=== PATIENT | female | born 1965 | race African-American/Black ===

== ENCOUNTER 2016-11-16 17:18 | Emergency (ER) | payer OTHER ==
--- NOTE | ~2016-11-16 | CR21 ---
[facility] A Service of [facility] RADIOLOGY TEXT RESULTS PATIENT: NATHALY DURHAM LOCATION: [facility] : 69 UNIT #: [id number] AGE: [address]: Rocío Murillo SEX: F ORDER DR: [id number] [facility] [address] [place], [place] [address] [id number] E MR#: [id number] Acc #: [id number] NAME: NATHALY DURHAM. : 1965 SEX: F STUDY DATE/TIME: 11/16/2016 17:45 UNIT: [facility] ROOM: STUDY DESCRIPTION: CR Ankle Min 3 Views Rt Attending Physician: Rocío Murillo Pa-C Ordering Physician: Rocío Murillo Pa-C Primary Care Physician: Primary Care Physician No MEDICAL IMAGING REPORT This report is preliminary unless electronic signature is present EXAM 4 views of the right ankle INDICATION Pain in the right foot and ankle, hurts to put weight on it. This occurred after the patient stepped in a hole today. FINDINGS No acute fracture or subluxation of the right ankle is identified. There is probably some mild soft tissue swelling overlying the lateral malleolus. Really minimal degenerative change is seen. No aggressive osseous abnormalities are identified. IMPRESSION No acute fracture or subluxation identified although there may be some mild soft tissue swelling about the lateral malleolus. Dictated by... Rebecca Tyler M.D. THIS IS AN ELECTRONICALLY VERIFIED REPORT Rebecca Tyler M.D. at 11/17/2016 4:40 PM AFF/jo ann TD: 11/17/2016 03:23 JOB #: [id number] MEDICAL IMAGING REPORT Page 1 of 1 COPY
--- NOTE | ~2016-11-16 | CR127 ---
[facility] A Service of [facility] RADIOLOGY TEXT RESULTS PATIENT: NATHALY DURHAM LOCATION: [facility] : 69 UNIT #: [id number] AGE: [address]: Rocío Murillo SEX: F ORDER DR: [id number] [facility] [address] [place], [place] [address] [id number] E MR#: [id number] Acc #: [id number] NAME: NATHALY DURHAM. : 1965 SEX: F STUDY DATE/TIME: 11/16/2016 17:47 UNIT: [facility] ROOM: STUDY DESCRIPTION: CR Foot Complete Min 3 View Rt Attending Physician: Rocío Murillo Pa-C Ordering Physician: Rocío Murillo Pa-C Primary Care Physician: Primary Care Physician No MEDICAL IMAGING REPORT This report is preliminary unless electronic signature is present EXAM Three views right foot. INDICATIONS Pain in the right ankle and foot after the patient stepped in a hole today. Patient reports that it hurts to put weight on it. FINDINGS No acute fracture or subluxation of the right foot is identified. There is really minimal degenerative change other than some mild enthesopathic change at the insertion of the Achilles tendon. No aggressive osseous abnormalities are seen. IMPRESSION No acute fracture or subluxation identified. Dictated by... Rebecca Tyler M.D. THIS IS AN ELECTRONICALLY VERIFIED REPORT Rebecca Tyler M.D. at 11/17/2016 4:40 PM AFF/psc TD: 11/17/2016 03:24 JOB #: [id number] MEDICAL IMAGING REPORT Page 1 of 1 COPY
[~2016-11-16 17:18] MED LIST: ASPIRIN81 M2 PO; CELEXA20 M1; FLONASE 0.05% N16 G1; GLIPIZIDE10 MG PO; GLUCOPHAGE500 M1 PO; LEVAQUIN PO; LISINOPRIL-HCTZ1 T14 PO; MEDROL PO; MUCINEX1200 MG/BO PO; PRAVASTATIN SOD10 MG PO; PROTONIX PO
== END 2016-11-16 19:06 | disposition home or self-care (01) ==
LOC: CFTX 17:18 → CED 17:18 → CFTX 17:55
DX: S93.401A Sprain of unspecified ligament of right ankle, initial encounter (principal); I10 Essential (primary) hypertension; E11.9 Type 2 diabetes mellitus without complications; F17.200 Nicotine dependence, unspecified, uncomplicated; W01.0XXA Fall on same level from slipping, tripping and stumbling without subsequent striking against object, initial encounter; Y92.009 Unspecified place in unspecified non-institutional (private) residence as the place of occurrence of the external cause
CPT/HCPCS: 29515; 73610; 73630; 99283

== ENCOUNTER 2017-03-01 16:56 | Emergency (ER) | payer OTHER ==
[~2017-03-01] VITALS: Ht 167.6 cm; Wt 82.5 kg
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
== END 2017-03-01 19:05 | disposition home or self-care (01) ==
LOC: CED 16:56 → CFTX 17:48 → CED 17:48
DX: S63.502A Unspecified sprain of left wrist, initial encounter (principal); S16.1XXA Strain of muscle, fascia and tendon at neck level, initial encounter; S39.012A Strain of muscle, fascia and tendon of lower back, initial encounter; E11.9 Type 2 diabetes mellitus without complications; I10 Essential (primary) hypertension; F17.210 Nicotine dependence, cigarettes, uncomplicated; Z88.2 Allergy status to sulfonamides; Z79.899 Other long term (current) drug therapy; V49.40XA Driver injured in collision with unspecified motor vehicles in traffic accident, initial encounter; Y92.410 Unspecified street and highway as the place of occurrence of the external cause
CPT/HCPCS: 29125; 72040; 72100; 73110; 96372; 99283; J1885